=== PATIENT | male | born 1975 | race Caucasian/White ===

== ENCOUNTER 2016-09-10 21:59 | Inpatient (IN) | payer OTHER ==
[~2016-09-10] VITALS: Ht 188 cm; Wt 120.2 kg
[~2016-09-10 21:59] MED LIST: GLUCOPHAGE500 MG PO; LIPITOR20 MG PO; LISINOPRIL5 MG PO; NIACIN1000 MG PO; NORCO 325-10 MG1 TAB PO; OMEPRAZOLE20 MG PO
[2016-09-10] MEDS ORDERED: MS CONTIN30 MG PO (23:54)
[2016-09-11] MEDS ORDERED: NIACIN1000 MG PO (14:51)
[2016-09-11] MEDS ORDERED: LIPITOR20 MG PO (14:52)
[2016-09-11] MEDS ORDERED: FENOFIBRATE160 MG PO (14:53)
[2016-09-11] MEDS ORDERED: PRINIVIL5 MG PO (14:53)
[2016-09-11] MEDS ORDERED: GLUCOTROL10 MG PO (14:54)
[2016-09-11] MEDS ORDERED: CATAPRES0.1 MG PO (14:58)
== END 2016-09-12 08:50 | disposition left against medical advice (07) | DRG 440 ==
LOC: ER 21:59 → IP 23:45
PROVIDERS: ADMIT Family Medicine
DX: K85.90 Acute pancreatitis without necrosis or infection, unspecified (principal); E11.9 Type 2 diabetes mellitus without complications; G89.29 Other chronic pain; K86.1 Other chronic pancreatitis; E78.5 Hyperlipidemia, unspecified; F41.9 Anxiety disorder, unspecified; Z91.14 Patient's other noncompliance with medication regimen; Z53.21 Procedure and treatment not carried out due to patient leaving prior to being seen by health care provider
CPT/HCPCS: G0477; J1170; J1200; J1650; J1815; J2405; J2765; Q9963; Q9967